=== PATIENT | female | born 1950 | race Caucasian/White ===

== ENCOUNTER 2016-06-13 17:37 | Emergency (ER) | payer BC ==
[~2016-06-13 17:37] MED LIST: KLONOPIN1 MG PO; LEVAQUIN750 MG PO; MS CONTIN15 MG PO; NEURONTIN300 MG PO; NORVASC2.5 MG PO; PERCOCET 10/3251 TAB PO; PRILOSEC20 MG PO; REQUIP1 MG PO; SYNTHROID150 MCG PO; TRAZODONE HCL150 MG PO; VITAMIN D350000 UNIT PO
== END 2016-06-13 21:05 | disposition home or self-care (01) ==
LOC: ER 17:37
DX: R10.13 Epigastric pain (principal); M06.9 Rheumatoid arthritis, unspecified; K21.9 Gastro-esophageal reflux disease without esophagitis; Z87.01 Personal history of pneumonia (recurrent); Z79.899 Other long term (current) drug therapy; Z88.5 Allergy status to narcotic agent
CPT/HCPCS: 36415; 96374; 96375

== ENCOUNTER 2016-07-13 21:04 | Emergency (ER) | payer BC | END 2016-07-13 21:55 | disposition home or self-care (01) | LOC: ER 21:04 | DX: G89.29 Other chronic pain (principal); M54.5 Low back pain; I10 Essential (primary) hypertension; K21.9 Gastro-esophageal reflux disease without esophagitis; E78.5 Hyperlipidemia, unspecified; M06.9 Rheumatoid arthritis, unspecified; E66.9 Obesity, unspecified; Z88.5 Allergy status to narcotic agent; Z79.899 Other long term (current) drug therapy ==